=== PATIENT | male | born 1990 | race Caucasian/White ===

== ENCOUNTER 2020-03-17 03:11 | Emergency (ER) | payer OTHER, MEDICAID ==
[~2020-03-17] VITALS: Ht 185.4 cm; Wt 127.0 kg
[2020-03-17 03:18] VITALS: Ht 185.4 cm; Wt 127.0 kg
[2020-03-17 09:45] VITALS: BP 103/38
== END 2020-03-17 09:45 | disposition home or self-care (01) ==
LOC: ED 03:11
DX: S06.0X1A Concussion with loss of consciousness of 30 minutes or less, initial encounter (principal); S02.2XXA Fracture of nasal bones, initial encounter for closed fracture; S61.411A Laceration without foreign body of right hand, initial encounter; E11.9 Type 2 diabetes mellitus without complications; F10.129 Alcohol abuse with intoxication, unspecified; V49.9XXA Car occupant (driver) (passenger) injured in unspecified traffic accident, initial encounter; Y93.89 Activity, other specified; Y92.89 Other specified places as the place of occurrence of the external cause; Y99.8 Other external cause status
CPT/HCPCS: 90715; J0690; J1885; J2001; J2405

== ENCOUNTER 2020-03-21 14:19 | Emergency (ER) | payer OTHER, MEDICAID ==
[~2020-03-21] VITALS: Ht 185.4 cm; Wt 133.4 kg
[2020-03-21 15:00] VITALS: Ht 185.4 cm; Wt 133.4 kg
[2020-03-21 16:17] VITALS: BP 137/79
== END 2020-03-21 16:17 | disposition home or self-care (01) ==
LOC: ED 14:19
DX: S61.411D Laceration without foreign body of right hand, subsequent encounter (principal); S62.201D Unspecified fracture of first metacarpal bone, right hand, subsequent encounter for fracture with routine healing; E11.9 Type 2 diabetes mellitus without complications; V49.9XXD Car occupant (driver) (passenger) injured in unspecified traffic accident, subsequent encounter

== ENCOUNTER 2020-03-31 09:08 | Emergency (ER) | payer OTHER, MEDICAID ==
[~2020-03-31] VITALS: Ht 185.4 cm; Wt 133.4 kg
[2020-03-31 09:17] VITALS: Ht 185.4 cm; Wt 133.4 kg
[2020-03-31 10:25] VITALS: BP 147/89
== END 2020-03-31 10:25 | disposition home or self-care (01) ==
LOC: ED 09:08
DX: S62.501D Fracture of unspecified phalanx of right thumb, subsequent encounter for fracture with routine healing (principal); S61.011D Laceration without foreign body of right thumb without damage to nail, subsequent encounter; E11.9 Type 2 diabetes mellitus without complications; X58.XXXD Exposure to other specified factors, subsequent encounter